=== PATIENT | female | born 1970 | race Caucasian/White ===

== ENCOUNTER 2020-08-23 14:18 | Outpatient (CLI) | payer OTHER, SELFPAY ==
[2020-08-25 13:21] LABS: TB Skin Test Erythema 0 mm; TB Skin Test Induration 0 mm (0-10); TB Skin Test Interpretation Negative (Negative); TB Skin Test Site Left Arm
== END 2020-08-23 14:19 | disposition home or self-care (01) ==
LOC: CHSLAB 14:22
PROVIDERS: PCP Internal Medicine; Visit Provider Internal Medicine
DX: Z11.1 Encounter for screening for respiratory tuberculosis (principal)
CPT/HCPCS: 36415; 86580

== ENCOUNTER 2020-12-04 09:33 | Outpatient (CLI) | payer OTHER, SELFPAY ==
[2020-12-04 09:43] LABS: Basophils Absolute Auto 0.08 K/mm3 (0.00-0.10); Basophils Percent Auto 0.9 % (0.0-1.0); Eosinophils Absolute Auto 0.16 K/mm3 (0.02-0.50); Eosinophils Percent Auto 1.8 % (1.0-6.0); Hematocrit 52.1 % (35.0-49.0); Hemoglobin 17.4 g/dL (12.0-15.0); Immature Granulocyte Absolute 0.03 K/mm3 (0.00-0.00); Immature Granulocyte Percent A 0.3 % (0.0-0.0); Lymphocytes Absolute Auto 2.87 K/mm3 (1.10-4.50); Lymphocytes Percent Auto 33.2 % (18.0-42.0); Mean Corpuscular HGB Conc 33.4 g/dL (32.0-36.0); Mean Corpuscular Hemoglobin 34.4 pg (27.0-31.0); Monocytes Absolute Auto 0.75 K/mm3 (0.10-0.90); Monocytes Percent Auto 8.7 % (2.0-11.0); Neutrophils Absolute Auto 4.8 K/mm3 (1.7-7.2); Neutrophils Percent Auto 55.1 % (50.0-70.0); Platelet Count Result 145 K/mm3 (150-420); Red Blood Count 5.06 M/mm3 (4.20-5.40); White Blood Count 8.7 K/mm3 (4.8-10.8)
[2020-12-04 09:57] LABS: Hemoglobin A1C 9.8 % (<5.7)
[2020-12-04 10:01] LABS: Alanine Aminotransferase 24 U/L (14-59); Alkaline Phosphatase 215 U/L (46-116); Anion Gap 7 mmol/L (8-16); Aspartate Amino Transferase 25 U/L (15-37); Bilirubin,Total 0.8 mg/dL (0.00-1.00); Blood Urea Nitrogen 9 mg/dL (7-18); Calcium 9.4 mg/dL (8.5-10.1); Carbon Dioxide 33 mmol/L (21-32); Chloride 100 mmol/L (98-108); Cholesterol 217 mg/dL (0-200); Estimated Glomerular Filt Rate > 60; Glucose 256 mg/dL (70-99); HDL Direct 51 mg/dL (40-60); LDL Cholesterol Calculated 146 mg/dL (<130); Magnesium 1.8 mg/dL (1.8-2.4); Osmolality Calculated 297 mOsm/kg (285-295); Potassium 4.7 mmol/L (3.5-5.1); Sodium 140 mmol/L (136-145); Total Protein 7.2 g/dL (6.4-8.2); Triglycerides 102 mg/dL (0-150)
== END 2020-12-04 09:34 | disposition home or self-care (01) ==
LOC: CHSLAB 09:36
PROVIDERS: PCP Internal Medicine; Visit Provider Internal Medicine
DX: E11.9 Type 2 diabetes mellitus without complications (principal); E78.5 Hyperlipidemia, unspecified; R60.9 Edema, unspecified; Z79.899 Other long term (current) drug therapy
CPT/HCPCS: 36415; 80053; 80061; 83036; 83735; 85025

== ENCOUNTER 2021-02-08 11:56 | Outpatient (CLI) | payer OTHER, SELFPAY ==
[2021-02-08 12:13] LABS: Basophils Absolute Auto 0.08 K/mm3 (0.00-0.10); Basophils Percent Auto 0.8 % (0.0-1.0); Eosinophils Absolute Auto 0.16 K/mm3 (0.02-0.50); Eosinophils Percent Auto 1.5 % (1.0-6.0); Hematocrit 49.2 % (35.0-49.0); Hemoglobin 16.6 g/dL (12.0-15.0); Immature Granulocyte Absolute 0.04 K/mm3 (0.00-0.00); Immature Granulocyte Percent A 0.4 % (0.0-0.0); Lymphocytes Absolute Auto 3.16 K/mm3 (1.10-4.50); Lymphocytes Percent Auto 30.3 % (18.0-42.0); Mean Corpuscular HGB Conc 33.7 g/dL (32.0-36.0); Mean Corpuscular Hemoglobin 34.9 pg (27.0-31.0); Mean Corpuscular Volume 103.4 fL (78.0-102.0); Mean Platelet Volume 12.7 fl (9.2-11.8); Monocytes Absolute Auto 0.72 K/mm3 (0.10-0.90); Monocytes Percent Auto 6.9 % (2.0-11.0); Neutrophils Absolute Auto 6.3 K/mm3 (1.7-7.2); Neutrophils Percent Auto 60.1 % (50.0-70.0); Platelet Count Result 124 K/mm3 (150-420); Red Blood Count 4.76 M/mm3 (4.20-5.40); Red Cell Distribution Width 12.5 % (11.6-14.4); White Blood Count 10.4 K/mm3 (4.8-10.8)
[2021-02-08 12:21] LABS: Add Urine Microscopic? YES; Appearance Urine Cloudy (Clear); Bilirubin Urine Negative (Negative); Blood Urine 3+ (Negative); Color Urine Yellow (Yellow); Glucose Urine UA Trace (Negative); Ketones Urine Negative (Negative); Leukocyte Esterase Ur 3+ (Negative); Nitrate Urine Positive (Negative); Protein Urine 2+ (Negative); Specific Grav Ur 1.025 (1.010-1.020); Urobilinogen Urine >=8.0 mg/dL (0.2-1.0)
[2021-02-08 12:41] LABS: Bacteria Urine 2+ /hpf; RBC Urine >75 /hpf (0-2); WBC Urine >75 /hpf (0-3)
[2021-02-08 13:06] LABS: Alanine Aminotransferase 19 U/L (14-59); Albumin Level 3.2 g/dL (3.4-5.0); Alkaline Phosphatase 133 U/L (46-116); Amylase 29 U/L (25-115); Anion Gap 7 mmol/L (8-16); Aspartate Amino Transferase 20 U/L (15-37); Bilirubin,Total 0.6 mg/dL (0.00-1.00); Blood Urea Nitrogen 7 mg/dL (7-18); Calcium 8.8 mg/dL (8.5-10.1); Carbon Dioxide 33 mmol/L (21-32); Chloride 101 mmol/L (98-108); Estimated Glomerular Filt Rate > 60; Glucose 209 mg/dL (70-99); Lipase 47 U/L (73-393); Osmolality Calculated 296 mOsm/kg (285-295); Sodium 141 mmol/L (136-145); Total Protein 6.4 g/dL (6.4-8.2)
== END 2021-02-08 11:57 | disposition home or self-care (01) ==
LOC: CHSLAB 12:01
PROVIDERS: PCP Internal Medicine; Visit Provider Internal Medicine
DX: R10.9 Unspecified abdominal pain (principal); R11.2 Nausea with vomiting, unspecified
CPT/HCPCS: 36415; 80053; 81001; 82150; 83690; 85025; 87077; 87086; 87088; 87186

== ENCOUNTER 2021-02-08 21:16 | Emergency (ER) | payer OTHER, SELFPAY ==
--- NOTE | ~2021-02-08 | CT_ITS ---
EXAMINATION: CT abdomen pelvis w con INDICATION: Central abdominal pain TECHNIQUE: Computed tomographic images of the abdomen and pelvis were obtained after the administrati on of 100 cc of Omnipaque 350 intravenous contrast. The dose-length product (DLP) was 1211.21 mGy-cm. Automated exposure control and iterative reconstruction technique were employed. COMPARISON: 07/02/2010 FINDINGS: Stable small nodules of the visualized lung bases the heart size is normal. There is nodula rity of the liver surface. Stones are present in the nondistended gallbladder. The spleen, pancreas, and adrenal glands are normal. There are nonobstructing stones of the left kidney lower pole measurin g up to 2 mm. Nonobstructing right kidney stones measure up to 2 mm. There is a 2.7 cm cyst of the ri ght kidney. No stones are present in the ureters or bladder. There is no hydronephrosis or hydrourete r. There is mild wall thickening of the urinary bladder. Also seen is a small amount of gas in the no ndependent portion of the urinary bladder. No pathologically enlarged abdominal or pelvic lymph nodes are identified. There is no free intraperitoneal gas or evidence of bowel obstruction. A moderate vo lume of colonic stool is present. There is severe lower lumbar spondylosis. IMPRESSION: 1. Wall thickening of the urinary bladder which could reflect cystitis. Small amount of intraluminal gas in the bladder may be due to catheterization. 2. Bilateral nonobstructing nephrolithiasis. 3. Constipation. 4. Cholelithiasis without cholecystitis. 5. Cirrhosis. Reviewed, dictated and finalized at location A. IMPRESSION: 1. Wall thickening of the urinary bladder which could reflect cystitis. Small a mount of intraluminal gas in the bladder may be due to catheterization. 2. Bilateral nonobstructing nephrolithiasis. 3. Constipation. 4. Cholelithiasis without cholecystitis. 5. Cirrhosis.
[2021-02-08 21:36] VITALS: BP 118/75; PULSE 100; RESP 20; TEMP 36.7; O2SAT 96
[2021-02-08] MEDS: SODIUM CHLORIDE 0.9% IV 1,000 ML 999 ML IV CONT (22:00)
[2021-02-08] MEDS: MORPHINE SULFATE (*CRX) 4 MG/ML INJ IV PUSH (22:01)
[2021-02-08] MEDS: ONDANSETRON INJ 4 MG/2 ML VIAL IV PUSH (22:23)
--- NOTE | 2021-02-08 22:46 | ED.ABDPAIN ---
HPI - Abdominal Pain General Chief Complaint: Abdominal Pain Stated Complaint: stomach pain Source: patient Mode of arrival: ambulatory Limitations: no limitations History of Present Illness HPI narrative: This is a 50-year-old female that presents with some abdominal pain diffuse but localizes to the right upper quadrant has been going off and on for the last couple of days saw her primary care physician today that order to CT scan but needed a prior authorization had blood work performed today along with a urinalysis that showed that she has urinary tract infection. Patient is having some abdominal discomfort rates it about a 6/10 with some nausea with no fever chills no diarrhea constipation. MD elicited complaint: abdominal pain Onset (ago): day(s) Pain Consistency: intermittent Location: diffuse Related Data Home Medications Medication Instructions Recorded Confirmed exenatide [Byetta] 5 mcg SUBCUT BID 02/08/21 02/08/21 gabapentin 800 mg PO BID 02/08/21 02/08/21 insulin NPH and regular human 80 unit SUBCUT BID 02/08/21 02/08/21 [Humulin 70/30 U-100 KwikPen] ondansetron HCl 4 mg PO QID PRN 02/08/21 02/08/21 pantoprazole 40 mg PO BID 02/08/21 02/08/21 Allergies Allergy/AdvReac Type Severity Reaction Status Date / Time clarithromycin [From Biaxin] Allergy Hives Verified 02/08/21 21:43 Review of Systems Review of Systems: All systems reviewed & are unremarkable except as noted in HPI and below PMFSH Past Medical History Medical History Diabetes mellitus Exam Const: General: no acute distress Orientation/consciousness: patient oriented x3 HENMT: Head: normal to inspection Eyes: Conjunctivae: conjunctivae normal Pupils: Equal, round and reactive pupils present EOM: EOMs intact bilaterally Neck: Neck: normal visual inspection, no lymphadenopathy and no meningeal signs Chest: Chest palpation & inspection: normal inspection of the chest Resp: Effort & Inspection: normal respiratory effort Cardio: Rate: regular rate Rhythm: regular rhythm GI: GI Palp: Yes Soft to palpation and Yes Tenderness to palpation present (GI) : General: Yes no CVA tenderness Extrem: General: normal to inspection and no pedal edema Psych: Mental Status: mental status grossly normal Affect: normal affect Course Course Emergency Course: CT scan reviewed with patient which does show cholelithiasis without cholecystitis does show small kidney stones without obstruction patient has urinary tract infection will give her a g of ceftriaxone will send antibiotics along with pain medication to printout that they can pickling operator at a local pharmacy. Advised patient to follow-up with primary care physician to have ultrasound ordered of her gallbladder. Vital Signs Vital signs: Vital Signs Temperature 36.7 C 02/08/21 21:36 Pulse Rate 100 02/08/21 21:36 Respiratory Rate 02/08/21 21:36 Blood Pressure 118/75 02/08/21 21:36 Pulse Oximetry 96 02/08/21 21:36 Temperature 36.7 C 02/08/21 21:36 Pulse Rate 100 02/08/21 21:36 Respiratory Rate 02/08/21 21:36 Blood Pressure 118/75 02/08/21 21:36 Pulse Oximetry 96 02/08/21 21:36 MDM - Abdominal Pain Imaging Data Radiologist's impression: ITS Impressions Abdomen/Pelvis CT 02/08/21 22:23 IMPRESSION: 1. Wall thickening of the urinary bladder which could reflect cystitis. Small amount of intraluminal gas in the bladder may be due to catheterization. 2. Bilateral nonobstructing nephrolithiasis. 3. Constipation. 4. Cholelithiasis without cholecystitis. 5. Cirrhosis. Critical Care Time Critical Care Time Critical Care Time: No Discharge Plan Discharge Clinical Impression: Cholelithiasis Qualifiers: Cholelithiasis location: gallbladder Cholecystitis presence: without cholecystitis Biliary obstruction: without biliary obstruction Qualified Code(s): K80.20 - Calculus of gallbla
[2021-02-08 23:10] VITALS: BP 110/74; PULSE 102; RESP 20; TEMP 36.6; O2SAT 97
== END 2021-02-08 23:14 | disposition home or self-care (01) ==
PROVIDERS: Emergency Provider Emergency Medicine; PCP Internal Medicine
DX: K80.20 Calculus of gallbladder without cholecystitis without obstruction (principal); N39.0 Urinary tract infection, site not specified; N20.0 Calculus of kidney; K74.60 Unspecified cirrhosis of liver; E11.9 Type 2 diabetes mellitus without complications; Z79.4 Long term (current) use of insulin
CPT/HCPCS: 74177; 96361; 96374; 96375; 99283; 99284; J0696; J2270; J2405; J7030; Q9967

== ENCOUNTER 2021-02-22 11:15 | Outpatient (CLI) | payer OTHER, SELFPAY ==
[2021-02-22 11:30] LABS: Basophils Percent Auto 1.4 % (0.0-1.0); Eosinophils Absolute Auto 0.12 K/mm3 (0.02-0.50); Eosinophils Percent Auto 1.7 % (1.0-6.0); Hematocrit 49.5 % (35.0-49.0); Hemoglobin 16.8 g/dL (12.0-15.0); Immature Granulocyte Absolute 0.03 K/mm3 (0.00-0.00); Immature Granulocyte Percent A 0.4 % (0.0-0.0); Lymphocytes Absolute Auto 2.01 K/mm3 (1.10-4.50); Mean Corpuscular HGB Conc 33.9 g/dL (32.0-36.0); Mean Corpuscular Hemoglobin 34.6 pg (27.0-31.0); Mean Corpuscular Volume 101.9 fL (78.0-102.0); Mean Platelet Volume 12.4 fl (9.2-11.8); Monocytes Absolute Auto 0.59 K/mm3 (0.10-0.90); Monocytes Percent Auto 8.2 % (2.0-11.0); Neutrophils Absolute Auto 4.3 K/mm3 (1.7-7.2); Neutrophils Percent Auto 60.3 % (50.0-70.0); Platelet Count Result 126 K/mm3 (150-420); Red Blood Count 4.86 M/mm3 (4.20-5.40); White Blood Count 7.2 K/mm3 (4.8-10.8)
[2021-02-22 11:45] LABS: Partial Thromboplastin Time 25.1 SEC (23.90-30.70); Prothrombin Time 10.9 Seconds (9.50-12.10)
[2021-02-22 12:03] LABS: Alanine Aminotransferase 21 U/L (14-59); Albumin Level 3.5 g/dL (3.4-5.0); Alkaline Phosphatase 128 U/L (46-116); Anion Gap 6 mmol/L (8-16); Aspartate Amino Transferase 23 U/L (15-37); Bilirubin,Total 0.6 mg/dL (0.00-1.00); Blood Urea Nitrogen 9 mg/dL (7-18); Calcium 9.3 mg/dL (8.5-10.1); Carbon Dioxide 32 mmol/L (21-32); Chloride 100 mmol/L (98-108); Estimated Glomerular Filt Rate > 60; Glucose 230 mg/dL (70-99); Osmolality Calculated 291 mOsm/kg (285-295); Potassium 4.5 mmol/L (3.5-5.1); Sodium 138 mmol/L (136-145); Total Protein 7.3 g/dL (6.4-8.2)
== END 2021-02-22 11:16 | disposition home or self-care (01) ==
PROVIDERS: PCP Internal Medicine; Visit Provider Surgery
DX: K80.20 Calculus of gallbladder without cholecystitis without obstruction (principal)
CPT/HCPCS: 36415; 80053; 85025; 85610; 85730

== ENCOUNTER 2021-03-02 08:33 | Outpatient (CLI) | payer OTHER, SELFPAY ==
--- NOTE | 2021-03-02 08:36 | ECG_ITS ---
Measurements Intervals [place] Rate: 81 P: 74 TX: 147 QRS: 65 QRSD: 76 T: 68 QT: 367 QTc: 428 Interpretive Statements SINUS RHYTHM BORDERLINE T WAVE ABNORMALITY- ANTERIOR LEADS BORDERLINE ECG Electronically Signed On 03-02-2021 13:34:57 CDT by Prakash Leung D.O.
[2021-03-02 13:54] LABS: SARS-CoV-2 RNA PCR Negative (Negative)
== END 2021-03-02 08:34 | disposition home or self-care (01) ==
LOC: CHSLAB 08:36
PROVIDERS: PCP Internal Medicine; Visit Provider Surgery
DX: E11.9 Type 2 diabetes mellitus without complications (principal); Z01.818 Encounter for other preprocedural examination; Z20.822 Contact with and (suspected) exposure to COVID-19
CPT/HCPCS: 93005; C9803; U0003; U0005

== ENCOUNTER 2021-03-29 09:05 | Outpatient (CLI) | payer OTHER, SELFPAY ==
[2021-03-29 14:31] LABS: SARS-CoV-2 RNA PCR Negative (Negative)
== END 2021-03-29 09:06 | disposition home or self-care (01) ==
LOC: CHSLAB 09:08
PROVIDERS: PCP Internal Medicine; Visit Provider Surgery
DX: Z01.818 Encounter for other preprocedural examination (principal); Z20.822 Contact with and (suspected) exposure to COVID-19
CPT/HCPCS: C9803; U0003; U0005

== ENCOUNTER 2021-04-02 00:26 | Day surgery (SDC) | payer OTHER, SELFPAY ==
[2021-02-28 11:36] VITALS: BMI 38.0
--- NOTE | 2021-03-30 09:29 | PC.NURSE ---
Pt states no changes in health history since previous interview. Medications updated in EMR. New pre-op instructions reviewed with pt. Pt denies questions at this time.
--- NOTE | 2021-03-30 09:30 | PC.NURSE ---
Report to the Outpatient Waiting Room, entrance under the green pavilion located off [facility], at time 1200 on date 03/13/21. OR Time: 1400. - You and your visitor will be asked a series of questions to screen for COVID 19 for your protection. - A mask is required within the hospital. - Only one visitor is allowed at this time. Patient visitors will be guided where to wait when not with patient. Preoperative COVID Testing Requirements: No COVID Test needed if: (proof is required; if not received patient will have Rapid Test prior to entry) - Patient has received COVID Vaccine at least 14 days prior to procedure date or - Patient has positive COVID test result within last 90 days of surgery date. COVID Test needed if above criteria is not met If not COVID vaccinated a COVID test must be conducted within 72 hours of surgery and patient is asked to isolate self from time of testing until procedure. You will go to the [employer] [facility] for your COVID testing. The [employer] [facility] site is located at the corner of [address] [facility]. You will only be called if COVID results are positive and your surgeon may reschedule your elective surgery date. Patients may have clear liquids (water, carbonated beverages, clear teas, apple juice) until 3 hours prior to surgery with a maximum of 20 ounces. - No food from midnight until time of surgery - Infants may have breast milk until 4 hours before surgery, formula 6 hours prior to surgery. - Children will be allowed to drink immediately following surgery. If applicable, please bring a bottle or sippy cup to assist with drinking. Juice, water, soda, and popsicles are readily available. For infants on formula, please bring formula the day of surgery. Pacifiers are allowed. Take the following medications with a SIP of water the morning of surgery: DULOXETINE, GABAPENTIN, ALBUTEROL (AND BRING ALONG), PAIN PILL (IF NEEDED) Medications to discontinue per physician: N/A Date to take last dose: N/A Please no make-up, nail [facility], hairspray, perfume, deodorant, or body powder the day of surgery. No jewelry (including any body piercings) or valuables the day of surgery, leave them at home. Please take a shower or bath the night before, or the morning of, surgery with an antibacterial soap. Wear comfortable, loose fitting clothing. Children are encouraged to wear pajamas. HIBICLENS SHOWER - Jewelry must be removed prior to entering the operating room. Rings and piercings that are not removed may be cut off. - The hospital will not accept responsibility for valuables. - Please leave all valuables, including medications, at home the day of surgery. If you are going home after surgery, a licensed maintenance truck driver must drive you home. - NO public transportation without another adult. - We recommend that an adult stay with you for 24 hours following discharge. - We also recommend that you do not drive, make important decision, drink alcoholic beverages, or take any drugs that were not prescribed by your health care provider for at least 24 hours after your discharge time. For Pediatric surgeries, we recommend two adults accompany the child home (only one inside the building at this time). Follow any additional instructions given to you from your surgeon. Telephone instructions given to ALEX MCGRAW and asked if any additional questions and then verbalized understanding. Patient advised to call surgeon office or pre surgery nurse liaison [phone] if any additional questions.
[2021-04-02] VITALS (9 sets, daily range): BP systolic 108–143; BP diastolic 62–86; PULSE 83–108; RESP 14–16; TEMP 36.3–36.7; O2SAT 95–100
[2021-04-02] MEDS: LACTATED RINGERS 1,000 ML 30 ML IV CONT ×2 (12:06→16:28)
[2021-04-02] MEDS: ACETAMINOPHEN 500 MG TABLET 1000 MG PO (12:22)
[2021-04-02] MEDS: KETOROLAC 15 MG/ML VIAL (*BKC) IV PUSH (12:24)
[2021-04-02 12:27] LABS: Glucose Point of Care 170 mg/dl (65-105)
--- NOTE | 2021-04-02 12:40 | WPDANESEPPF ---
Anes - Initial Pre Proc Eval Procedure: Operation Date: 04/02/21 14:00 Proposed Procedures p Laparoscopic Cholecystectomy, Possible Open - Riaz Flores DO Date/Time: 04/02/21 12:40 Surgeon: Riaz Flores DO Pre Op Diagnosis: symp cholelithiasis Patient Data Age: 50 Gender: F Height: 1.52 m Weight: 80.8 kg Allergies Allergy/AdvReac Type Severity Reaction Status Date / Time Sulfa (Sulfonamide Allergy Unknown Unknown Verified 04/02/21 11:40 Antibiotics) clarithromycin [From Biaxin] Allergy Hives Verified 04/02/21 11:40 Home Medications Medication Instructions Recorded Confirmed Type gabapentin 800 mg PO BID 02/08/21 04/02/21 History pantoprazole 40 mg PO BID 02/08/21 04/02/21 History albuterol sulfate 90 mcg/actuation 1 puff INHALATION Q4H PRN 02/22/21 04/02/21 History aerosol inhaler atorvastatin 20 mg tablet 20 mg PO HS 02/22/21 04/02/21 History duloxetine 20 mg capsule,delayed 20 mg PO BID 02/22/21 04/02/21 History release montelukast 10 mg tablet 10 mg PO DAILY 02/22/21 04/02/21 History hydrocodone 5 mg-acetaminophen 325 1 tablet PO Q6H PRN #15 tablet 03/12/21 04/02/21 Rx mg tablet Laboratory Tests 04/02/21 12:20 POC Capillary Glucose 170 mg/dl H mg/dl (65-105) Patient hx anesthesia problems: post op nausea/vomiting Family hx anesthesia problems: none Results Review: All pre-operative results and documents have been reviewed as part of the pre-operative evaluation. FOR[facility]LY [facility] Past Medical History Medical History Chronic pain COPD (chronic obstructive pulmonary disease) Diabetes mellitus Sleep apnea Surgical History Surgical History H/O exploratory laparotomy 1994 H/O: hysterectomy 1994 History of tubal ligation 1990 Family History Family History Grandparent Lung disease Alzheimer disease Diabetes mellitus Sibling Breast cancer Social History Social History Smoking packs per day: 0.5 Smoking cigarettes per day: 10.0 Years smoked: 43 Smoking pack-years: 21.50 Smoking status: Current every day smoker Tobacco type: cigarettes Alcohol intake: never Substance use: never Substance use type: does not use Living arrangements: with family Spiritual care concerns: No Anes - Eval Final PreProcedure Day of Procedure 04/02/21 12:40 Patient weight: obese Heart: regular rate and rhythm Lungs: decreased breath sounds Airway: Mallampati scale class II Neurological: alert and oriented Last oral intake: >/= 8 hours ASA classification: III Emergent: no Anesthetic plan: proceed Anesthesia type and monitoring: general ETT and standard monitoring Results Review: All pre-operative results and documents have been reviewed as part of the pre-operative evaluation. Informed Consent: The patient's anesthetic plan and its attendant risks and benefits were discussed with the patient/family/POA. Questions were solicited and answers provided to the satisfaction of the patient/family/POA.
[2021-04-02] MEDS: SCOPOLAMINE 1.5 MG PATCH TRANSDERM (12:59)
--- NOTE | 2021-04-02 14:55 | PM.IMHP ---
H&P: HPI History of Present Illness Date/Time: 04/02/21 14:55 Chief Complaint: Symptomatic cholelithiasis Narrative: This is a 50 old woman who presents for laparoscopic cholecystectomy. She reports no significant medical changes since last seen in the office. Review of Systems Review of Systems: All systems reviewed & are unremarkable except as noted in HPI and below Constitutional: Constitutional: Denies chills, Denies fever(s), Denies headache(s) and Denies weight loss Eyes: Eyes: Denies change in vision ENT: Denies dizziness, Denies headache(s), Denies neck mass and Denies throat swelling Cardiovascular: Cardiovascular: Denies chest pain, Denies lightheadedness and Denies dyspnea Respiratory: Respiratory: Denies cough, Denies dyspnea and Denies wheezing Gastrointestinal: Gastrointestinal: Denies abdominal pain, Denies change in bowel habits, Denies nausea and Denies vomiting Genitourinary: Genitourinary: Denies hematuria and Denies dysuria Musculoskeletal: Musculoskeletal: Reports as per HPI Integumentary/Breasts: Skin/Breast: Reports as per HPI Neurologic: Denies dizziness and Denies headache(s) Allergic/Immunologic: Allergic/Immunologic: Denies throat swelling and Denies wheezing PMF Past Medical History Medical History Chronic pain COPD (chronic obstructive pulmonary disease) Diabetes mellitus Sleep apnea Surgical History Surgical History H/O exploratory laparotomy 1994 H/O: hysterectomy 1994 History of tubal ligation 1990 Family History Family History Grandparent Lung disease Alzheimer disease Diabetes mellitus Sibling Breast cancer Social History Social History Smoking packs per day: 0.5 Smoking cigarettes per day: 10.0 Years smoked: 43 Smoking pack-years: 21.50 Smoking status: Current every day smoker Tobacco type: cigarettes Alcohol intake: never Substance use: never Substance use type: does not use Living arrangements: with family Spiritual care concerns: No Meds Home Medications and Allergies Home Medications Medication Instructions Recorded Confirmed Type gabapentin 800 mg PO BID 02/08/21 04/02/21 History pantoprazole 40 mg PO BID 02/08/21 04/02/21 History albuterol sulfate 90 mcg/actuation 1 puff INHALATION Q4H PRN 02/22/21 04/02/21 History aerosol inhaler atorvastatin 20 mg tablet 20 mg PO HS 02/22/21 04/02/21 History duloxetine 20 mg capsule,delayed 20 mg PO BID 02/22/21 04/02/21 History release montelukast 10 mg tablet 10 mg PO DAILY 02/22/21 04/02/21 History hydrocodone 5 mg-acetaminophen 325 1 tablet PO Q6H PRN #15 tablet 03/12/21 04/02/21 Rx mg tablet Allergies Allergy/AdvReac Type Severity Reaction Status Date / Time Sulfa (Sulfonamide Allergy Unknown Unknown Verified 04/02/21 11:40 Antibiotics) clarithromycin [From Biaxin] Allergy Hives Verified 04/02/21 11:40 Vital Signs Vital Signs - 24 hr 04/02/21 12:56 Temperature 36.7 C Pulse Rate 108 H Blood Pressure 143/86 H Pulse Oximetry 98 Exam Const: General: no acute distress and alert Orientation/consciousness: patient oriented x3 HENMT: Head: normocephalic and atraumatic Ears: hearing grossly normal bilaterally General nose exam: Normal nares present Mouth: Yes Normal oral and palatal mucosa present Eyes: Periorbital: periorbital findings normal Sclera: sclerae normal EOM: EOMs intact bilaterally Neck: Neck: normal visual inspection, no lymphadenopathy and trachea midline Chest: Chest palpation & inspection: normal inspection of the chest Resp: Effort & Inspection: normal respiratory effort Auscultation: clear to auscultation bilaterally Cardio: Jugular venous distension: no JVD Rate: regular rate Rhythm:
--- NOTE | 2021-04-02 14:57 | WPDHPUPDATE1 ---
History and Physical Update Update Date/Time: 04/02/21 14:57 History and Physical has been reviewed, including an updated exam of the patient. There are NO changes in the patient's condition. Risks, benefits, and alternatives have been discussed and questions answered. Patient agrees to proceed with procedure.
[2021-04-02] MEDS: ceFAZolin 2 GM/D5W 50 ML 2 GM/50 ML BAG IVPB (15:22)
[2021-04-02] MEDS: BUPIVACAINE HCL 0.5% PF 30 ML VIAL INFILTRATE (15:46)
--- NOTE | 2021-04-02 16:25 | W.PM.PROC2 ---
Procedure Note - Detailed Date of Procedure 04/02/21 Pre-op Diagnosis symp cholelithiasis Post-op Diagnosis other (Symptomatic cholelithiasis, cirrhosis) Procedure Performed 1. Laparoscopic Cholecystectomy 2. Laparoscopic wedge liver biopsy Surgeon Riaz Flores, Anesthesia general and local (0.5% bupivacaine) Indications This is a 50-year-old woman who presents with abdominal pain with nausea and vomiting for the past couple months. She has been having severe nausea vomiting and has not been able to keep much food down. She was able to stay on a as low of a fat diet as possible and this was helping with her symptoms somewhat. Her CT showed evidence of cholelithiasis. Discussions were made with the patient about treatment options and decision was made to proceed with laparoscopic cholecystectomy, possible open. Findings Laparoscopic cholecystectomy was performed. Upon entering the abdominal cavity laparoscopically, the liver was inspected and there appeared to be some evidence of nodular cirrhosis. This was seen on her previous CT. She does not have any known history of viral hepatitis or other causes for cirrhosis. Her gallbladder appeared slightly distended, but no other significant abnormalities were noted. The cystic duct appeared normal in size. The gallbladder was removed and sent to the lab for pathology. Decision was made to also perform a wedge biopsy of the liver laparoscopically to send for pathology for cirrhosis. Description of Procedure Procedure as well as risks, benefits, and alternatives were discussed with patient. Written consent was obtained and placed in chart prior to procedure. The patient was brought back to surgical suite. Patient was placed in supine position on operating table. Time-out was done to confirm patient and procedure. Patient was then intubated by the anesthesia department. Abdomen was prepped and draped in sterile fashion using chlorhexidine prep. 0.5% bupivacaine with epinephrine was infiltrated at each site of incision. A 5 millimeter incision was made near the umbilicus, and a 5 millimeter Optiview trocar was advanced through the abdominal layers under direct visualization. Once inside the abdominal cavity, carbon dioxide was insufflated to create a pneumoperitoneum. The camera was inserted and the abdomen was inspected. No immediate abnormalities were identified. The patient was placed in reverse Trendelenburg position and rotated slightly to the left. An 11 millimeter incision was made in the subxiphoid region, and an 11 millimeter trocar was inserted under direct visualization. Two 5 millimeter incisions were made in the right upper quadrant, and two 5 millimeter trocars were inserted under direct visualization. The gallbladder was identified and grasped at the fundus and retracted superiorly. It was then grasped at the infundibulum retracted laterally. Careful dissection around the neck of the gallbladder was performed using blunt dissection with a [place] grasper and hook electrocautery. The cystic duct was identified, and a window was created behind it. The cystic artery was also identified and a window was created behind it. The critical view of safety was identified, visualizing the cystic duct running directly into the neck of the gallbladder, and the cystic artery running directly into the wall of the gallbladder. A 5 millimeter clip utility specialist was then used to place 2 clips proximally and 1 clip distally on both the cystic duct and cystic artery. They were then both transected using endoscopic scissors. Once safely away from the brown hepatitis, the gallbladder was dissected free from the liver bed using hook electrocautery. Hemostasis was achieved along the way. The gallbladder was removed completely and then removed through the subxiphoid port. The liver bed was then inspected. Hemostasis appeared adequate, and our clips appeared secure. The area was gently irrigated with steri
[2021-04-02 16:35] LABS: Glucose Point of Care 152 mg/dl (65-105)
[2021-04-02] MEDS: fentaNYL CITRATE INJ (*CRX) 100 MCG/2 ML VIAL 25 MCG IV PUSH ×4 (16:36→16:50)
[2021-04-02] MEDS: ONDANSETRON INJ 4 MG/2 ML VIAL IV PUSH (16:53)
[2021-04-02] MEDS: METOCLOPRAMIDE HCL INJ 10 MG/2 ML VIAL IV PUSH (17:14)
[2021-04-02] MEDS: oxyCODONE HCL (*CRX) 5 MG TAB IR PO (17:35)
--- NOTE | 2021-04-02 18:10 | SUR.PHASEII ---
1810- Patient dressed and ready for discharge at this time. Awaiting patient's transportation home. Discharge instructions reviewed and patient verbalized understanding.
== END 2021-04-02 18:27 | disposition home or self-care (01) ==
PROVIDERS: PCP Internal Medicine; Visit Provider Surgery
PROC: 0FT44ZZ Resection of Gallbladder, Percutaneous Endoscopic Approach (ICD-10-PCS; CPT 47562; principal; 2021-04-02 14:00)
DX: K81.1 Chronic cholecystitis (principal); K73.9 Chronic hepatitis, unspecified; K74.60 Unspecified cirrhosis of liver; E11.9 Type 2 diabetes mellitus without complications; J44.9 Chronic obstructive pulmonary disease, unspecified; G47.30 Sleep apnea, unspecified; G89.29 Other chronic pain; F17.210 Nicotine dependence, cigarettes, uncomplicated; Z79.51 Long term (current) use of inhaled steroids; E66.9 Obesity, unspecified; Z68.34 Body mass index [BMI] 34.0-34.9, adult
CPT/HCPCS: 47562; 47379; 36415; 82948; 86850; 86900; 86901; 88304; 88305; 88307; 88312; 88313; A9270; J0330; J0690; J1885; J2250; J2270; J2405; J2710; J2765; J3010; J7030; J7120

== ENCOUNTER 2021-07-26 11:15 | Outpatient (CLI) | payer OTHER, SELFPAY ==
--- NOTE | ~2021-07-26 | XR_ITS ---
EXAMINATION: XR chest 2V 07/26/2021 11:43 INDICATION: Diabetes. Weight loss. Chronic diarrhea appear PROCEDURE: 2 view chest COMPARISON: Comparison to multiple prior studies sequentially, with oldest reviewed study dated 06/2014. FINDINGS: The lungs are clear. The cardiomediastinal silhouette is within normal limits. There are no pleural effusions. There is no pneumothorax suspected. There are cholecystectomy clips. IMPRESSION: 1: NO ACUTE CARDIOPULMONARY DISEASE. Reviewed, dictated and finalized at location B.
[2021-07-26 11:36] LABS: Basophils Absolute Auto 0.07 K/mm3 (0.00-0.10); Basophils Percent Auto 0.7 % (0.0-1.0); Eosinophils Absolute Auto 0.15 K/mm3 (0.02-0.50); Eosinophils Percent Auto 1.5 % (1.0-6.0); Hematocrit 46.2 % (35.0-49.0); Hemoglobin 15.3 g/dL (12.0-15.0); Immature Granulocyte Absolute 0.03 K/mm3 (0.00-0.00); Immature Granulocyte Percent A 0.3 % (0.0-0.0); Lymphocytes Absolute Auto 2.17 K/mm3 (1.10-4.50); Lymphocytes Percent Auto 21.9 % (18.0-42.0); Mean Corpuscular HGB Conc 33.1 g/dL (32.0-36.0); Mean Corpuscular Hemoglobin 34.2 pg (27.0-31.0); Mean Corpuscular Volume 103.1 fL (78.0-102.0); Mean Platelet Volume 12.2 fl (9.2-11.8); Monocytes Absolute Auto 0.94 K/mm3 (0.10-0.90); Monocytes Percent Auto 9.5 % (2.0-11.0); Neutrophils Absolute Auto 6.6 K/mm3 (1.7-7.2); Neutrophils Percent Auto 66.1 % (50.0-70.0); Platelet Count Result 162 K/mm3 (150-420); Red Blood Count 4.48 M/mm3 (4.20-5.40); Red Cell Distribution Width 12.7 % (11.6-14.4); White Blood Count 9.9 K/mm3 (4.8-10.8)
[2021-07-26 11:43] LABS: Hemoglobin A1C 6.2 % (<5.7)
[2021-07-26 12:41] LABS: Alanine Aminotransferase 32 U/L (14-59); Albumin Level 2.9 g/dL (3.4-5.0); Alkaline Phosphatase 246 U/L (46-116); Anion Gap 6 mmol/L (8-16); Aspartate Amino Transferase 43 U/L (15-37); Bilirubin,Total 0.8 mg/dL (0.00-1.00); Blood Urea Nitrogen 7 mg/dL (7-18); Calcium 8.9 mg/dL (8.5-10.1); Carbon Dioxide 32 mmol/L (21-32); Chloride 100 mmol/L (98-108); Estimated Glomerular Filt Rate > 60; Free T3 2.71 pg/mL (2.18-3.98); Free T4 Free Thyroxine 1.22 ng/dL (0.76-1.46); Glucose 157 mg/dL (70-99); Osmolality Calculated 287 mOsm/kg (285-295); Potassium 3.7 mmol/L (3.5-5.1); Sodium 138 mmol/L (136-145); Thyroid Stimulating Hormone 2.85 uIU/mL (0.36-3.74); Total Protein 6.1 g/dL (6.4-8.2)
[2021-08-01 00:26] LABS: ANCA Screen Negative (Negative); Myeloperoxidase Ab <1.0 AI (<1.0); Proteinase-3 Ab <1.0 AI (<1.0); S cerevisiae Ab (IgA) 12.3 U (<=20.0); S cerevisiae Ab (IgG) 29.8 U (<=20.0)
== END 2021-07-26 11:16 | disposition home or self-care (01) ==
LOC: CHSLAB 11:18
PROVIDERS: PCP Internal Medicine; Visit Provider Internal Medicine
DX: K74.60 Unspecified cirrhosis of liver (principal); E11.9 Type 2 diabetes mellitus without complications; R63.4 Abnormal weight loss; R19.7 Diarrhea, unspecified
CPT/HCPCS: 36415; 71046; 80053; 82105; 83036; 84439; 84443; 84481; 85025; 86036; 86671

== ENCOUNTER 2021-10-11 11:34 | Outpatient (CLI) | payer OTHER, SELFPAY ==
--- NOTE | ~2021-10-11 | XR_ITS ---
XR hip RT min 2V DATE: 10/11/2021 12:12 INDICATION: Bilateral hip pain TECHNIQUE: AP and lateral views COMPARISON: None FINDINGS: No fracture or dislocation, avascular necrosis or bone destruction. IMPRESSION: Negative Reviewed, dictated and finalized at location A. IMPRESSION: Negative
--- NOTE | ~2021-10-11 | XR_ITS ---
EXAMINATION: XR lumbar spine 2-3V DATE: 10/11/2021 12:12 INDICATION: Low back pain. TECHNIQUE: 3 views of lumbar spine were obtained. COMPARISON: None. FINDINGS: Bone alignment is normal. Vertebral body heights are normal. There is moderately decreased disc height at L4-L5 and severely decreased disc height at L5-S1 with endplate remodeling. There is m ultilevel mild facet joint osteoarthritis. IMPRESSION: 1. Severe lower lumbar spondylosis. Reviewed, dictated and finalized at location A.
--- NOTE | ~2021-10-11 | XR_ITS ---
XR hip LT min 2V DATE: 10/11/2021 12:12 INDICATION: Bilateral hip pain TECHNIQUE: AP and lateral COMPARISON: None FINDINGS: No fracture or dislocation, avascular necrosis or bone destruction. Left hip joint space i s well preserved. IMPRESSION: Negative Reviewed, dictated and finalized at location A. IMPRESSION: Negative
[2021-10-11 11:54] LABS: Basophils Absolute Auto 0.07 K/mm3 (0.00-0.10); Eosinophils Absolute Auto 0.15 K/mm3 (0.02-0.50); Eosinophils Percent Auto 2.1 % (1.0-6.0); Hematocrit 45.3 % (35.0-49.0); Hemoglobin 15.1 g/dL (12.0-15.0); Immature Granulocyte Absolute 0.01 K/mm3 (0.00-0.00); Immature Granulocyte Percent A 0.1 % (0.0-0.0); Lymphocytes Absolute Auto 2.59 K/mm3 (1.10-4.50); Lymphocytes Percent Auto 36.1 % (18.0-42.0); Mean Corpuscular HGB Conc 33.3 g/dL (32.0-36.0); Mean Corpuscular Hemoglobin 34.9 pg (27.0-31.0); Mean Corpuscular Volume 104.6 fL (78.0-102.0); Mean Platelet Volume 12.3 fl (9.2-11.8); Monocytes Absolute Auto 0.56 K/mm3 (0.10-0.90); Monocytes Percent Auto 7.8 % (2.0-11.0); Neutrophils Absolute Auto 3.8 K/mm3 (1.7-7.2); Neutrophils Percent Auto 52.9 % (50.0-70.0); Platelet Count Result 118 K/mm3 (150-420); Red Blood Count 4.33 M/mm3 (4.20-5.40); Red Cell Distribution Width 13.4 % (11.6-14.4); White Blood Count 7.2 K/mm3 (4.8-10.8)
[2021-10-11 12:03] LABS: Hemoglobin A1C 5.7 % (<5.7)
[2021-10-11 12:18] LABS: Alanine Aminotransferase 13 U/L (14-59); Alkaline Phosphatase 159 U/L (46-116); Anion Gap 3 mmol/L (8-16); Aspartate Amino Transferase 22 U/L (15-37); Bilirubin,Total 0.3 mg/dL (0.00-1.00); Blood Urea Nitrogen 7 mg/dL (7-18); Calcium 8.9 mg/dL (8.5-10.1); Carbon Dioxide 31 mmol/L (21-32); Chloride 103 mmol/L (98-108); Cholesterol 159 mg/dL (0-200); Estimated Glomerular Filt Rate > 60; Glucose 119 mg/dL (70-99); HDL Direct 39 mg/dL (40-60); LDL Cholesterol Calculated 91 mg/dL (<130); Osmolality Calculated 283 mOsm/kg (285-295); Potassium 4.2 mmol/L (3.5-5.1); Sodium 137 mmol/L (136-145); Total Protein 6.5 g/dL (6.4-8.2); Triglycerides 145 mg/dL (0-150)
== END 2021-10-11 11:35 | disposition home or self-care (01) ==
LOC: CHSLAB 11:38
PROVIDERS: PCP Internal Medicine; Visit Provider Internal Medicine
DX: K74.60 Unspecified cirrhosis of liver (principal); E11.9 Type 2 diabetes mellitus without complications; M25.552 Pain in left hip; M25.551 Pain in right hip
CPT/HCPCS: 36415; 72100; 73502; 80053; 80061; 83036; 85025

== ENCOUNTER 2021-12-08 09:41 | Outpatient (CLI) | payer OTHER, SELFPAY ==
--- NOTE | ~2021-12-08 | MR_ITS ---
EXAMINATION: MR lumbar spine wo con DATE: 12/08/2021 11:48 INDICATION: Right low back pain TECHNIQUE: Magnetic resonance imaging (MRI) of the lumbar spine was performed without intravenous con trast. Sequences included sagittal T2-weighted FSE, sagittal T2-weighted FS FSE, sagittal T1-weighted FSE, and axial T2-weighted FSE. COMPARISON: Lumbar spine radiographs dated 10/19/2021 FINDINGS: Alignment is normal. Vertebral body heights are normal. Severe disc height loss with fibrofatty and f ibrovascular degenerative endplate changes at L4-L5 and L5-S1. Marrow signal is otherwise normal. Rem aining discs are normal. The conus medullaris terminates at L1-L2. There is normal signal in the caud al spinal cord. Paravertebral soft tissues are unremarkable. The following disc levels are specifical ly discussed: T12-L1: The disc does not extend beyond the endplate margin. There is mild bilateral facet joint oste oarthritis. There is no neural foraminal stenosis. There is no central canal stenosis. L1-L2: The disc does not extend beyond the endplate margin. There is mild right and moderate left fac et joint osteoarthritis. There is no neural foraminal stenosis. There is no central canal stenosis. L2-L3: Minimal disc protrusions at the bilateral foraminal zones There is mild bilateral facet joint osteoarthritis. There is minimal bilateral neural foraminal stenosis. There is no central canal steno sis. L3-L4: Minimal disc protrusions at the bilateral foraminal zones. There is mild bilateral facet joint osteoarthritis. There is minimal bilateral neural foraminal stenosis. There is no central canal sten osis. L4-L5: Disk is bulging with superimposed annular fissure and disc extrusion extending from foraminal zone to foraminal zone. This most prominent at the right paracentral to foraminal zone where there is more focal cephalad extrusion extending 10 mm cephalad to the level of the inferior endplate of L4 a nd measuring approximately 12 mm left to right and 7 mm AP. There is an additional 6 x 6 x 6 mm colle ction of disc material extending inferiorly from the level of the disc space at the right lateral rec ess which appears separate from the extruded disc material and would favor a small sequestered disc f ragment. There is moderate bilateral facet joint osteoarthritis. There is moderate bilateral neural f oraminal stenosis. There is mild central canal stenosis along with mild narrowing of the right latera l recess. L5-S1: Disc is bulging with superimposed annular fissure and central disc extrusion which measures 1. 4 cm craniocaudally, 1 mm anteroposteriorly and 12 mm left to right. There is mild bilateral facet anthony int osteoarthritis. There is moderate left and mild to moderate right neural foraminal stenosis. Ther e is mild central canal stenosis. IMPRESSION: 1. Severe spondylosis at L4-L5 and L5-S1. Minimal more cephalad spondylosis. Reviewed, dictated and finalized at location A.
== END 2021-12-08 09:42 | disposition home or self-care (01) ==
LOC: CHSIMG 09:42
PROVIDERS: PCP Internal Medicine; Visit Provider Nurse Practitioner Family
DX: M54.50 Low back pain, unspecified (principal)
CPT/HCPCS: 72148

== ENCOUNTER 2023-05-02 15:50 | Outpatient (CLI) | payer OTHER, SELFPAY ==
--- NOTE | ~2023-05-02 | XR_ITS ---
XR chest 2V DATE: 05/02/2023 17:07 INDICATION: Cough for 2 days, chills, fatigue. COPD, type 2 diabetes mellitus, coronary artery diseas e. TECHNIQUE: 2 views COMPARISON: 07/26/2021 2 view chest FINDINGS: Normal heart size. There is bilateral peribronchial soft tissue thickening. There is minima l infiltrate or atelectasis in the lower lung zones. No pleural effusion or pulmonary vascular congestion or pneumothorax is detected. Status post cholecystectomy. Osteopenia. IMPRESSION: Bilateral peribronchial soft tissue thickening and minimal infiltrate or atelectasis in t he lower lung zones Reviewed, dictated and finalized at location A. ENT PLANT OPERATOR IMPRESSION: Bilateral peribronchial soft tissue thickening and minimal infiltra te or atelectasis in the lower lung zones
[2023-05-02 16:28] LABS: Hemoglobin A1C 6.8 % (<5.7)
[2023-05-02 16:48] LABS: Alanine Aminotransferase 16 U/L (14-59); Albumin Level 3.2 g/dL (3.4-5.0); Alkaline Phosphatase 111 U/L (46-116); Anion Gap 4 mmol/L (8-16); Aspartate Amino Transferase 29 U/L (15-37); Bilirubin,Total 0.4 mg/dL (0.00-1.00); Blood Urea Nitrogen 10 mg/dL (7-18); Calcium 8.4 mg/dL (8.5-10.1); Carbon Dioxide 35 mmol/L (21-32); Chloride 97 mmol/L (98-108); Cholesterol 149 mg/dL (0-200); Estimated Glomerular Filt Rate 55; Glucose 143 mg/dL (70-99); HDL Direct 37 mg/dL (40-60); LDL Cholesterol Calculated 91 mg/dL (<130); Osmolality Calculated 283 mOsm/kg (285-295); Potassium 3.7 mmol/L (3.5-5.1); Sodium 136 mmol/L (136-145); Thyroid Stimulating Hormone 3.48 uIU/mL (0.36-3.74); Total Protein 6.8 g/dL (6.4-8.2); Triglycerides 105 mg/dL (0-150)
[2023-05-02 16:50] LABS: Influenza A QL RT-PCR Positive (Negative); Influenza B QL RT-PCR Negative (Negative); RSV RNA, RT-PCR Negative (Negative); SARS-CoV-2 RNA PCR Negative (Negative)
== END 2023-05-02 15:51 | disposition home or self-care (01) ==
PROVIDERS: PCP Internal Medicine; Visit Provider Internal Medicine
DX: J44.9 Chronic obstructive pulmonary disease, unspecified (principal); E11.9 Type 2 diabetes mellitus without complications; I25.10 Atherosclerotic heart disease of native coronary artery without angina pectoris; R05.9 Cough, unspecified; R91.8 Other nonspecific abnormal finding of lung field; J10.1 Influenza due to other identified influenza virus with other respiratory manifestations
CPT/HCPCS: 36415; 71046; 80053; 80061; 83036; 84443; 87637

== ENCOUNTER 2023-05-06 14:54 | Outpatient (CLI) | payer OTHER, SELFPAY ==
--- NOTE | ~2023-05-06 | CT_ITS ---
EXAMINATION: CT brain wo con DATE: 05/06/2023 15:23 INDICATION: Left-sided head injury. Syncope. TECHNIQUE: Computed tomography (CT) of the head was performed without intravenous contrast. The dose- length product was 681.00 mGy-cm. Automated exposure control and iterative reconstruction technique w ere employed. COMPARISON: None FINDINGS: There is asymmetry of the left tentorium which is hyperdense compared to the right, suspici ous for subtle subdural hemorrhage. There is a small amount of hemorrhage in the occipital horn of th e left lateral ventricle. Brain parenchymal volume is normal. Basilar cisterns are patent. There is m ucosal thickening of the paranasal sinuses with air-fluid level in the left maxillary sinus. Mastoids are pneumatized. No depressed skull fractures. No ventriculomegaly or midline shift. Normal monsalve-whi te differentiation. There is intracranial atherosclerosis. IMPRESSION: 1. Intraventricular hemorrhage involving the occipital horn left lateral ventricle. 2: Asymmetric hyperdensity left tentorium cerebelli compared to the right, suspicious for small subd ural hemorrhage. Reviewed, dictated and finalized at location L. EL ENGINE INSPECTOR IMPRESSION: 1. Intraventricular hemorrhage involving the occipital horn left lateral ventri nixon. 2: Asymmetric hyperdensity left tentorium cerebelli compared to the right, naomy picious for small subdural hemorrhage.
== END 2023-05-06 14:55 | disposition home or self-care (01) ==
PROVIDERS: PCP Internal Medicine; Visit Provider Internal Medicine
DX: R55 Syncope and collapse (principal); S09.90XA Unspecified injury of head, initial encounter; I61.5 Nontraumatic intracerebral hemorrhage, intraventricular
CPT/HCPCS: 70450

== ENCOUNTER 2023-05-06 15:55 | Emergency (ER) | payer OTHER, SELFPAY ==
--- NOTE | ~2023-05-06 | XR_ITS ---
EXAMINATION: XR chest 1V portable DATE: 05/06/2023 16:37 INDICATION: Congestion TECHNIQUE: frontal view of the chest was obtained. COMPARISON: Chest radiograph dated 05/02/2023 FINDINGS: No significant interval change in mild increased prominence of the perihilar interstitial pattern. No focal airspace opacities, pleural effusion or pneumothorax. The cardiomediastinal silhouette is norm al. Visualized bones and soft tissues are unremarkable. IMPRESSION: 1. Mildly prominent perihilar interstitial pattern which could be seen with bronchitis, viral pneumon ia, asthma/reactive airway disease or mild pulmonary edema. Reviewed, dictated and finalized at location A. MAINFRAME DEVELOPER IMPRESSION: 1. Mildly prominent perihilar interstitial pattern which could be seen with bro nchitis, viral pneumonia, asthma/reactive airway disease or mild pulmonary omer a.
--- NOTE | ~2023-05-06 | CT_ITS ---
EXAMINATION: CT facial & cervical spine wo DATE: 05/06/2023 16:38 INDICATION: fall/brain bleed/LEFT SIDE FACE PAIN/NO CERVICAL COMPLAINTS TECHNIQUE: Computed tomography (CT) of the maxillofacial region and cervical spine was performed with out intravenous contrast. Automated exposure control and iterative reconstruction technique were empl oyed. The dose-length product was 620.68 mGy-cm. COMPARISON: None FINDINGS: CERVICAL: Vertebral Body Alignment: Intact. Craniocervical and atlantoaxial alignment: Moderate degenerative change. Alignment intact. Osseous structures/fracture: No evidence of a lytic or blastic process in the visualized spine. No e vidence of acute fracture. Cervical soft tissues: The paraspinal soft tissues planes are maintained. Degenerative changes: No significant degenerative changes. FACE: Soft Tissues: Fairly extensive inferior preorbital, and left face subcutaneous gas, also extending i nto the left family resource specialist space, left carotid space, left parapharyngeal space, and minimally in the le ft retropharyngeal space. Facial bones: Left orbital floor fracture with herniation of intraorbital fat. No lytic or blastic p rocess. Eyes: The globes are intact. Mild deformation of the left inferior rectus muscle without cale herni ation. Paranasal Sinuses: Air-fluid levels in the left maxillary, left posterior ethmoid, and left sphenoid sinuses. Mild pansinus mucosal thickening, with the exception of the frontal sinuses. The mastoid ai r cells are clear. Foreign Bodies: No radiopaque foreign bodies. Other Findings: None. IMPRESSION: Left orbital floor blow out fracture, with herniated intraorbital fat and deformation of the left inf erior rectus muscle. Correlate for clinical findings of extraocular muscle entrapment. No acute fracture or traumatic malalignment detected in the cervical spine. Reviewed, dictated and finalized at location K. TY MANAGER IMPRESSION: Left orbital floor blow out fracture, with herniated intraorbital fat and defor mation of the left inferior rectus muscle. Correlate for clinical findings of e xtraocular muscle entrapment. No acute fracture or traumatic malalignment detected in the cervical spine.
[2023-05-06 15:57] VITALS: BP 155/73; PULSE 56; RESP 18; TEMP 36.3; O2SAT 98
--- NOTE | 2023-05-06 15:58 | ED.SYNCOPE ---
HPI - Syncope General Chief Complaint: Head Injury Stated Complaint: head bleed/fall Time Seen by Provider: 05/06/23 15:56 Source: patient Mode of arrival: ambulatory Limitations: no limitations History of Present Illness HPI narrative: Patient is a 52-year-old female with flu syndrome (Influenza A) on Friday. She then had a syncopal episode on Friday. She presented to the doctor today with these complaints and CT scan was done which shows 2 brain bleeds. She was sent to the emergency room for further planning. She does not have any neurological complaints. She is on Eliquis for a PE 6 days ago. complaint: loss of consciousness Onset (ago): day(s) (4) -: second(s) Related Data Home Medications Medication Instructions Recorded Confirmed gabapentin 600 mg tablet 800 mg PO BID 02/08/21 05/06/23 albuterol sulfate 90 mcg/actuation 1 puff inhalation Q4H PRN 02/22/21 05/06/23 aerosol inhaler (ProAir HFA) Bronchospasm morphine 15 mg tablet,extended 15 mg PO BID 05/06/23 05/06/23 release Allergies Allergy/AdvReac Type Severity Reaction Status Date / Time Sulfa (Sulfonamide Allergy Unknown Unknown Verified 05/06/23 16:07 Antibiotics) clarithromycin [From Biaxin] Allergy Hives Verified 05/06/23 16:07 Review of Systems Review of Systems: All systems reviewed & are unremarkable except as noted in HPI and below Constitutional: Constitutional: Reports no additional constitutional complaints Eyes: Eyes: Reports no additional eye complaints ENT: Reports system reviewed and no additional complaints, except as documented Cardiovascular: Cardiovascular: Reports no additional cardiovascular complaints Respiratory: Respiratory: Reports no additional respiratory complaints Gastrointestinal: Gastrointestinal: Reports no additional gastrointestinal complaints Genitourinary: Genitourinary: Reports no additional female genitourinary complaints Musculoskeletal: Musculoskeletal: Reports no additional musculoskeletal complaints Integumentary/Breasts: Skin/Breast: Reports system reviewed and no additional complaints, except as docu Neurologic: Reports system reviewed and no additional complaints, except as documented Psychiatric: Psychiatric: Reports no additional psychiatric complaints Endocrine: Endocrine: Reports no additional endocrine complaints Hematologic/Lymphatic: Hematologic/Lymphatic: Reports no additional hematologic/lymphatic complaints Allergic/Immunologic: Allergic/Immunologic: Reports no additional allergic/immunologic complaints PMFSH Past Medical History Medical History Chronic pain COPD (chronic obstructive pulmonary disease) Diabetes mellitus Sleep apnea Surgical History Surgical History H/O exploratory laparotomy 1994 H/O: hysterectomy 1994 History of tubal ligation 1990 Family History Family History Grandparent Lung disease Alzheimer disease Diabetes mellitus Sibling Breast cancer Social History Social History Smoking packs per day: 0.5 Smoking cigarettes per day: 10.0 Years smoked: 43 Smoking pack-years: 21.50 Smoking status: Current every day smoker Tobacco type: cigarettes Alcohol intake: never Substance use: never Substance use type: does not use Living arrangements: with family Spiritual care concerns: No Exam Const: General: healthy appearing Nutritional Appearance: well nourished Orientation/consciousness: patient oriented x3 HENMT: Head: normal to inspection Ears: external ears normal Face/Nose/Sinus: Normal external nose present Eyes: Conjunctivae: conjunctivae normal Pupils: Equal, round and reactive pupils present EOM: EOMs intact bilaterally Other: no impingement of the left eye and moves all ar
[2023-05-06 16:20] VITALS: BP 158/82; PULSE 64; RESP 16; O2SAT 98
[2023-05-06 16:21] LABS: Hematocrit 44.9 % (35.0-49.0); Hemoglobin 15.3 g/dL (12.0-15.0); Mean Corpuscular HGB Conc 34.1 g/dL (32.0-36.0); Mean Corpuscular Hemoglobin 33.6 pg (27.0-31.0); Mean Corpuscular Volume 98.5 fL (78.0-102.0); Mean Platelet Volume 12.5 fl (9.2-11.8); Platelet Count Result 100 K/mm3 (150-420); Red Blood Count 4.56 M/mm3 (4.20-5.40); Red Cell Distribution Width 12.6 % (11.6-14.4); White Blood Count 5.2 K/mm3 (4.8-10.8)
[2023-05-06 16:34] LABS: INR 1.1; Partial Thromboplastin Time 34.8 SEC (23.90-30.70); Prothrombin Time 12.1 Seconds (9.50-12.10)
[2023-05-06 16:38] LABS: Alanine Aminotransferase 19 U/L (14-59); Albumin Level 2.8 g/dL (3.4-5.0); Alkaline Phosphatase 98 U/L (46-116); Anion Gap 3 mmol/L (8-16); Aspartate Amino Transferase 25 U/L (15-37); Bilirubin,Total 0.5 mg/dL (0.00-1.00); Blood Urea Nitrogen 4 mg/dL (7-18); Calcium 8.7 mg/dL (8.5-10.1); Carbon Dioxide 34 mmol/L (21-32); Chloride 97 mmol/L (98-108); Estimated Glomerular Filt Rate > 60; Glucose 186 mg/dL (70-99); Neutrophils Percent Manual 43 % (46-73); Osmolality Calculated 279 mOsm/kg (285-295); Potassium 3.4 mmol/L (3.5-5.1); Sodium 134 mmol/L (136-145); Total Cells Counted 100; Total Protein 6.8 g/dL (6.4-8.2)
[2023-05-06 16:39] LABS: Band Neutrophils Percent 0 % (0-6); Basophils Absolute Manual 0.05 K/mm3 (0-0.1); Basophils Percent Manual 1 % (0-1); Eosinophils Percent Manual 2 % (1-6); Lymphocytes Absolute Manual 2.28 K/mm3 (1.1-4.5); Lymphocytes Percent Manual 44 % (18-44); Metamyelocytes Percent 2 %; Monocytes Absolute Manual 0.36 K/mm3 (0.1-0.90); Monocytes Percent Manual 7 % (3-9); Myelocytes Percent 1 %; Neutrophils Absolute Manual 2.23 K/mm3 (1.7-7.2); Platelet Estimate Decreased (Adequate)
[2023-05-06] MEDS: SODIUM CHLORIDE 0.9% IV 1,000 ML 150 ML IV CONT (16:39)
[2023-05-06 16:53] VITALS: BP 121/69; PULSE 60; RESP 16; TEMP 36.5; O2SAT 95
--- NOTE | 2023-05-06 18:49 | PC.NURSE ---
pt transferred from this er to [facility] er at 1700. call received from [facility] trauma physician who spoke with erp dr Zarco about pt orbital fx. see erp notes. [facility] called to find their location. [facility] clerk states pt has already been delivered to a trauma bay at [facility] and they were leaving the facility, en route back to [place].
== END 2023-05-06 17:00 | disposition short-term general hospital (02) ==
PROVIDERS: Emergency Provider Emergency Medicine; PCP Internal Medicine
DX: S06.360A Traumatic hemorrhage of cerebrum, unspecified, without loss of consciousness, initial encounter (principal); S02.32XA Fracture of orbital floor, left side, initial encounter for closed fracture; I26.99 Other pulmonary embolism without acute cor pulmonale; J44.9 Chronic obstructive pulmonary disease, unspecified; E11.9 Type 2 diabetes mellitus without complications; F17.210 Nicotine dependence, cigarettes, uncomplicated; Z79.891 Long term (current) use of opiate analgesic; Z79.899 Other long term (current) drug therapy; Z79.01 Long term (current) use of anticoagulants; Z86.711 Personal history of pulmonary embolism; W19.XXXA Unspecified fall, initial encounter
CPT/HCPCS: 36415; 70486; 71045; 72125; 80053; 85025; 85610; 85730; 99291; J7030